=== PATIENT | male | born 1990 | race Caucasian/White ===

== ENCOUNTER 2022-09-27 08:34 | Emergency (ER) | payer OTHER ==
[~2022-09-27] VITALS: Ht 185 cm; Wt 79.0 kg
[2022-09-27 08:36] VITALS: BP 128/82
--- NOTE | 2022-09-27 08:53 | ED Integumentary General ---
General Chief Complaint: Laceration Stated Complaint: LT ARM LACERATION Nursing Triage Note: TO ROOM 07 ET LACERATION TO LEFT ARM WHILE PAINTING. PT PALE ET DIAPHORETIC. STATES HE BECOMES FAINT BY THE SIGHT OF BLOOD. Source: patient Exam Limitations: no limitations History of Present Illness Date Seen by Provider: September 27, 2022 Time Seen by Provider: 08:53 Initial Comments Patient is a 32-year-old male who presents to the emergency room with a chief complaint of laceration to the left volar forearm. 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 Patient states his last tetanus shot was approximately 2 years ago. He is only allergic to sulfa. He denies any numbness tingling or weakness to the hand. He did get very lightheaded, nauseous and sweaty after the injury. No other complaints of recent illness or injury. Timing/Duration: just prior to arrival Severity: mild Location: extremities (Left forearm) Possible Cause: other (Ceiling tile) Associated Symptoms: other (Lightheaded, nausea) Allergies and Home Medications Allergies Coded Allergies: Sulfa (Sulfonamide Antibiotics) (Verified Allergy, Severe, HIVES, 09/27/22) Patient Home Medication List Home Medication List Reviewed: Yes Review of Systems Review of Systems Constitutional: see HPI Musculoskeletal: other (Forearm pain) Skin: other (Laceration) Past [id number]-[id number] Hx Patient Social History Tobacco Use?: Yes Substance use?: No Alcohol Use?: No Physical Exam Vital Signs Vital Signs - First Documented 09/27/22 08:36 Temp 35.1 Pulse 92 Resp 16 B/P (MAP) 128/82 (97) Pulse Ox 96 Capillary Refill : Less Than 3 Seconds General Appearance: WD/WN, no apparent distress HEENT: PERRL/EOMI Respiratory: no respiratory distress, no accessory muscle use Extremities: normal range of motion Neurologic/Psychiatric: alert, normal mood/affect, oriented x 3 Skin: normal color, warm/dry, other (3-1/2 cm superficial laceration through subcutaneous fat vertical in orientation along the left proximal forearm. No active bleeding. Distal neurovascularly intact.) Procedures/Interventions Wound Location: Upper Extremities (Left proximal volar forearm) Other Wound Location Forearm Wound Length (cm): 3.5 Wound's Depth, Shape: superficial, linear, sub Q Wound Explored: clean Irrigated w/ Saline (ccs): 50 Anesthesia: 1% Lidocaine Volume Anesthetic (ccs): 4 Suture: Ethlion Suture Size: 4-0 Number of Sutures: 7 Layer Closure?: 1 Sterile Dressing Applied?: Yes Progress/Results/Core Measures Results/Orders Vital Signs/I&O 09/27/22 08:36 Temp 35.1 Pulse 92 Resp 16 B/P (MAP) 128/82 (97) Pulse Ox 96 Blood Pressure Mean: 97 Departure Impression Primary Impression: Forearm laceration Qualified Codes: S51.812A - Laceration without foreign body of left forearm, initial encounter Disposition: HOME, SELF-CARE Condition: Stable Departure-Patient Inst. Decision time for Depature: 09:16 Referrals: NO,LOCAL PHYSICIAN (PCP) Primary Care Physician Patient Instructions: Laceration Repair With Stitches ED Add. Discharge Instructions: The wound clean dry and covered while at work. You can wash it with a mild soap and water twice daily. Apply a little triple antibiotic ointment over the laceration twice a day for 2 days. You can take [id number] ibuprofen or Tylenol as needed for pain. Always take ibuprofen with food. Please follow packaging instructions. The stitches will need to stay in for 10 to 12 days. You can return to the emergency room (triage/admission nurse) to have the sutures removed. If you notice any redness, swelling or drainage from the wound please come back to the emergency department sooner for reevaluation. Work/School Note: Work Release Form Date Seen in the Emergency Department: September 27, 2022 Return to Work: September 28, 2022 SOCO MUNSON MD September 27, 2022 08:53
== END 2022-09-27 09:23 | disposition home or self-care (01) ==
LOC: ER 08:37
DX: S51.812A Laceration without foreign body of left forearm, initial encounter (principal); W26.8XXA Contact with other sharp object(s), not elsewhere classified, initial encounter; Y92.69 Other specified industrial and construction area as the place of occurrence of the external cause; Y93.89 Activity, other specified; Y99.0 Civilian activity done for income or pay

== ENCOUNTER 2022-10-07 10:34 | Emergency (ER) | payer OTHER ==
[~2022-10-07] VITALS: Ht 185 cm; Wt 77.0 kg
[2022-10-07 11:09] VITALS: BP 131/81
== END 2022-10-07 13:08 | disposition home or self-care (01) ==
LOC: EDUNIT# 10:34 → ER 10:37
DX: Z48.02 Encounter for removal of sutures (principal)